=== PATIENT | female | born 1980 | race Caucasian/White ===

== ENCOUNTER 2017-09-12 13:14 | Emergency (ER) | payer OTHER, SELFPAY ==
[2017-09-12 13:40] VITALS: BMI 35.5
--- NOTE | 2017-09-12 15:17 | OBHP ---
Datetime: 09/12/2017 13:43 IP Adm Impression: Term, intrauterine ; No Active Labor; Intact Membranes IP Admit Plan: Observation/Evaluation Admit Comment, IP Provider: Came to L_D with a note from [facility] to do songram for NIC. Pt is without complaints. +FM; no SROM; No VB; +FM She had NST at [facility] and sent to [facility] Sono dept called. She was not scheduled for appt. 36yo IUP at 40w PMH: denies PSH denies POBGYNH: G1; no STD NKA PSoH: denies smoking ETOH drugs A; IUP at 40+w post date preg PLAN sono/presentation and NIC Extremities - PN: Normal Back - PN: Normal Lungs - PN: Normal Heart - PN: Normal Neurologic - PN: Normal HEENT - PN: Normal General - PN: Normal Presentation-Admit: Vertex Membranes, Provider: Intact Contraction Comments Provider: occ Pool Provider: Negative IP Hx Assessment: The History has been Reviewed and is Current IP Chief Complaint: Other FHR Category Provider Fetus A: Category I NICHD Decel Fetus A IP Provider: None Dilatation, Provider: 0 Genitourinary Exam: Normal
--- NOTE | 2017-09-12 16:04 | US ---
Date of service: 09/12/2017 PROCEDURE: Limited Ob ultrasound HISTORY: Evaluate NIC - presentation COMPARISON: None TECHNIQUE: Transvaginal pelvic ultrasound was performed. FINDINGS: There is a single live intrauterine fetus in cephalic presentation. The heart rate is 138 beats per minute. Amniotic fluid is adequate with amniotic fluid index of 16.5. The cervix is elongated and closed and measures 5.8 cm. IMPRESSION: Single live intrauterine fetus in cephalic presentation. Amniotic fluid index is normal and measures 16.5.
--- NOTE | 2017-09-12 17:39 | OBDCSUM ---
Datetime: 09/12/2017 15:59 Discharged to, Provider: Home Follow up at, Provider: [facility] Disch Instr Activity: Normal activity Disch Instr Diet: Regular Discharge Time: 09/12/2017 16:00 Follow up in weeks, Provider: call for appointment Disch Referrals: None Discharge Comment, Provider: NIC Mason cephaldelia ...she is scheduled with Dr Matt machado and will be sc heduled for induction Discharge Diagnosis Prov Other: Postdate preg
[2017-09-12 20:31] VITALS: BP 119/65; PULSE 80; RESP 18; TEMP 98.3; O2SAT 100
== END 2017-09-12 16:00 | disposition home or self-care (01) ==
LOC: H.EROB2 13:14
DX: O48.0 Post-term pregnancy (principal)

== ENCOUNTER 2017-09-17 00:39 | Inpatient (IN) | payer MEDICAID, OTHER, SELFPAY ==
[2017-09-17 01:53] VITALS: BMI 36.6
[2017-09-17] MEDS ORDERED: Lactated Ringer's 500 ML IV ONE (02:13)
[2017-09-17 03:16] LABS: BASO % 0.3 % (0.0-2.0); EOS # 0.1 K/uL (0.0-0.7); HEMOGLOBIN 11.8 g/dL (12.0-16.0); LYMPH # 1.9 K/uL (1.0-4.3); LYMPH % 26.1 % (20.0-40.0); MEAN CELL VOLUME 89.3 fl (81.0-99.0); MEAN CORPUSCULAR HEMOGLOBIN 31.2 pg (27.0-31.0); MEAN CORPUSCULAR HGB CONC 34.9 g/dL (33.0-37.0); MEAN PLATELET VOLUME 11.1 fl (7.2-11.7); MONO # 0.5 K/uL (0.0-0.8); MONO % 6.9 % (0.0-10.0); NEUT # 4.8 K/uL (1.8-7.0); NEUT % 65.7 % (50.0-75.0); NRBC % 0.3 % (0.0-0.0); RBC 3.79 Mil/uL (3.80-5.20); RED CELL DISTRIBUTION WIDTH 14.1 % (11.5-14.5); WHITE BLOOD COUNT 7.4 K/uL (4.8-10.8)
--- NOTE | 2017-09-17 08:19 | OBADHP ---
Datetime: 09/17/2017 02:22 Admit Comment, IP Provider: Pt is a 37 yo JORGE 09/06/17 41.4wk based on LMP 11/30/17 and 14 wk U/S done 03/04/17 here due to feeling SROM at 11pm and contractions starting at 12am. Denies vaginal bleed ing, states the baby has good movements. Patient goes to [facility] in [place]. Denies headaches, blurry vision, CP, SOB, NVDC, or burning with urination. Fetus at last U/S(09/11/17) was 6lbs 11oz. Ob Hx: Denies complications with current Nutrition Teacher Hx: Denies STI's, denies abnormal pap smears, last sexually active months ago PNL: unremarkable except Quantiferon + (CXR post ), Patient did not receive TDAP vaccine PMHx: None Meds: Prenatals Allergies:NKDA Fam Hx: None Social Hx: Denies smoking, drug use or alcohol use Surg Hx: None A/P 41.4 wk IUP here with SROM and contractions - Monitor heart tracings - Admit to L _ D start labor protocol - Start IVF, CBC, type and screen, RPR, HIV (3rd tm labs) - Cervical exam performed by Dr. Calderon showed pt is 1cm dilated - Patient would like to see if she progresses naturally in 2 hours, then start Cytotec 50 mg Q4h Natalie Silva M.D. PGY-1 Patient seen and case discussed with Dr. Calderon OB Hospitalist on-call. With PGY, i saw and examined this patient. Agree wth note MAHNDO -Disucssion with pt about condition, cervical ripening, labor, delivery, medications, pain managem ent, Extremities - PN: Normal Abdomen - PN: Normal Lungs - PN: Normal Heart - PN: Normal HEENT - PN: Normal General - PN: Normal Presentation-Admit: Vertex FHR - Baseline A Provider: 120's Amniotic Fluid Color, Provider: Clear Membranes, Provider: Ruptured Contraction Comments Provider: Yes Pool Provider: Positive Nitrazine Provider: Positive IP Hx Assessment: The History has been Reviewed and is Current Vital Signs Provider: Reviewed; Within Normal Limits IP Chief Complaint: Uterine contractions; Suspected ruptured membranes NICHD Variability Prov Fetus A: Moderate 6-25bpm NICHD Accel Fetus A IP Provider: 15X15 FHR Category Provider Fetus A: Category I NICHD Decel Fetus A IP Provider: None Dilatation, Provider: 1 Effacement, Provider: long Station, Provider: EGKiran AdmitDate IP: 41.4 IP Adm Impression: Term, intrauterine ; No Active Labor; Ruptured Membranes IP Admit Plan: Admit to unit; Initiate labor induction protocol Datetime: 09/12/2017 13:43 Back - PN: Normal Neurologic - PN: Normal Genitourinary Exam: Normal
[2017-09-17] MEDS: Lactated Ringer's 500 ML IV SCH ×2 (17:19→22:25)
[2017-09-17] MEDS ORDERED: Nalbuphine HCL 10 mg/ml Ampule IVP PRN (20:24)
[2017-09-17] MEDS ORDERED: Nalbuphine 20 mg/ml Inj (1 ml) ONE (20:37)
[2017-09-18] MEDS: Lactated Ringer's 500 ML IV SCH (00:30)
[2017-09-18] MEDS ORDERED: Fentanyl/Bupivacaine HCl 250 ML EPI ONE (01:27)
[2017-09-18] MEDS ORDERED: Oxytocin 30 units/LR 500ML 30 U/500 ML BAG IV ONE (07:42)
--- NOTE | 2017-09-18 07:42 | OBPN ---
Datetime: 09/17/2017 12:38 IP Progress Impression: Reassuring heart rate; Reactive non-stress test; Rupture of membranes IP Informed Consent Obtain: Vaginal Delivery IP Progress Plan: Continue present management FHR - Baseline A Provider: 145 IP Progress Note Comment: Patient presented secondary to premature rupture of membranes patient rece ived Cytotec overnight patient reports contractions denies any vaginal bleeding good movement Sterile vaginal exam 1 cm 80% effaced -2 Continue Cytotec Vertex presentation Adequate pelvis Estimated weight 8-1/2-9 pounds anticipte normal vaginal delivery NICHD Accel Fetus A IP Provider: [id number] NICHD Variability Prov Fetus A: Moderate 6-25bpm Dilatation, Provider: 1 Effacement, Provider: 80 Station, Provider: -2 NICHD Decel Fetus A IP Provider: None Datetime: 09/17/2017 02:22 Pool Provider: Positive Nitrazine Provider: Positive Membranes, Provider: Ruptured Amniotic Fluid Color, Provider: Clear Contraction Comments Provider: Yes Presentation-Admit: Vertex Vital Signs Provider: Reviewed; Within Normal Limits FHR Category Provider Fetus A: Category I
--- NOTE | 2017-09-18 07:44 | OBPN ---
Datetime: 09/17/2017 22:42 IP Progress Impression: Reassuring heart rate; Rupture of membranes IP Progress Plan: Continue present management FHR - Baseline A Provider: 145 IP Progress Note Comment: Patient reported having increased pain and pressure requesting epidural an esthesia Sterile vaginal exam 180-2 Patient counseled regarding pain management we discussed sedation, nitrous, epidural After thorough discussion patient opted for epidural NICHD Accel Fetus A IP Provider: 15X15 NICHD Variability Prov Fetus A: Moderate 6-25bpm Dilatation, Provider: 1 Effacement, Provider: 80 Station, Provider: -2
--- NOTE | 2017-09-18 07:49 | OBPN ---
Datetime: 09/18/2017 07:44 IP Progress Impression: Normal progression of labor; Reassuring heart rate; Rupture of membran es IP Procedures: Sterile Vag Exam IP Progress Plan: Continue present management FHR - Baseline A Provider: 145 Gestation - Est Wks by US: 41.0 Weight - Estimated: 81/2-9 Presentation-Admit: Vertex IP Progress Note Comment: She doing well comfortable with epidural reports some pelvic pressure Sterile vaginal exam fully dilated +2 station Anticipate vaginal delivery NICHD Accel Fetus A IP Provider: 15X15 NICHD Variability Prov Fetus A: Moderate 6-25bpm Dilatation, Provider: 10 Effacement, Provider: 100 Station, Provider: 0
[2017-09-18] MEDS ORDERED: Lidocaine 1% 20 MG/2 ML PF AMP ONE (08:43)
[2017-09-18] MEDS ORDERED: Benzocaine/Menthol SPRAY TOP PRN (10:13)
[2017-09-18] MEDS ORDERED: Oxycodone/Acetaminophen 5/325 mg Tab PO PRN ×4 (10:13→11:59)
[2017-09-19 06:07] LABS: BASO % 0.3 % (0.0-2.0); EOS % 0.3 % (0.0-4.0); HEMOGLOBIN 10.7 g/dL (12.0-16.0); LYMPH # 2.4 K/uL (1.0-4.3); LYMPH % 15.9 % (20.0-40.0); MEAN CELL VOLUME 91.1 fl (81.0-99.0); MEAN CORPUSCULAR HEMOGLOBIN 30.2 pg (27.0-31.0); MEAN CORPUSCULAR HGB CONC 33.1 g/dL (33.0-37.0); MEAN PLATELET VOLUME 10.3 fl (7.2-11.7); MONO % 6.7 % (0.0-10.0); NEUT # 11.5 K/uL (1.8-7.0); NEUT % 76.8 % (50.0-75.0); RBC 3.54 Mil/uL (3.80-5.20); RED CELL DISTRIBUTION WIDTH 14.5 % (11.5-14.5)
[2017-09-19] MEDS ORDERED: Multivitamin With Minerals Tab PO SCH ×2 (09:00)
--- NOTE | 2017-09-19 10:05 | OBPPN ---
Datetime: 09/19/2017 07:47 PP Pain Prov: Within normal limits PP Nausea Prov: Denies PP Flatus Prov: Yes PP BM Prov: No PP Heart Prov: Normal PP Lungs Prov: Normal PP Abdomen/Uterus Prov: Normal PP Lochia Prov: Normal PP Extremities Prov: Normal PP C/S Incision Prov: Not Applicable PP Progress Prov: Normal PP Impression Prov: Normal progression PP Plan Prov: Continue present management PP Progress Note Prov: S: Pt is a 37 yo 41.4wk s/p on 09/18/17 PPD 1. Seen and examined at bedside this am. Patient denies any significant overnight events. Reports pain is controlled with pa in medicine, especially leg, back and vaginal pain. OOB/Ambulation well without dizziness. Breast/ mellissa ttle feeding well. Tolerating regular diet. Lochia is similar to menses. Voiding freely states breezy bl ood was noted. Patient has not had a bowel movement, but not is passing gas per rectum. Denies fever /chills, diarrhea, nausea/vomiting, CP/SOB , lightheadedness. O: BP:134/78, HR:117, T:99.7F CBC-10.7/32.3, blood type: O+, rubella: Immune PHYSICAL EXAM: GEN: AAOx3, Resting comfortably in bed, NAD HEENT: NCAT, White sclera, pink conjunctiva, oral mucosa moist. LUNGS: CTA B/L, no wheezing, rhonchi, or rales, B/L chest rise CVS: RRR, S1, S2, No murmurs, rubs, gallops ABD: ND, +BS, firm fundus @ umbilical level. Soft, appropriate TTP EXT: no edema, negative Chris's sign, calves non tender NEURO/Psych: no gross focal deficit, preserved affect and mood. A/P 37 y/o 41.4 wks post , had a on 09/18/17 @ 8:41. Pt afebrile, tolerating pain with medication, tolerating regular diet, adequate urine output. Encouraged breast feeding and ambulation Ibuprofen 600mg 1 tab po Q 6h prn mild pain PNV 1 tab po daily Post discharge contraception- unsure F/U 4-6 weeks for post- visit with [facility] Natalie Silva M.D. PGY-1 Patient was seen and case discussed with Dr. Rojas The patient was seen with the resident I agree with the note IP PP Procedures: None Vital Signs Provider PP: Reviewed Vital Signs Provider Details PP: HR 117
[2017-09-19] MEDS: Benzocaine/Menthol SPRAY TOP PRN (12:55)
[2017-09-20] MEDS: Benzocaine/Menthol SPRAY TOP PRN (02:07)
[2017-09-20] MEDS ORDERED: Prenatal Multivit/Folic Acid/Iron Tab PO SCH (09:00)
[2017-09-20] MEDS ORDERED: Patient's Own Med (Pnv With Ca,No.72/Iron/Fa [Pnv Prenatal Plus Multivit Tab] 1 TAB) PO SCH (09:00)
[2017-09-20 19:55] VITALS: BP 128/81; PULSE 82; RESP 20; TEMP 98.5; O2SAT 100
--- NOTE | 2017-09-20 22:55 | OBDS ---
DELIVERY PERSONNEL Delivery Doctor: Anibal Akhtar MD Vinyl Cutter: Nancie Harris RN MATERNAL INFORMATION Delivery Anesthesia: None Medications in Delivery: pitocin Estimated Blood Loss (ml): 300 Placenta Cultured: No Maternal Complications: None RN Comments: Live girl @ 0841 . Ifant care given. 9:9 Placenta delivered apparently intact. Pi tocin infusing well. Laceration repaired. Pt tolerated well. Provider Comments: Normal spontaneous vaginal delivery. Patient viable infant female with Apgars of 9 and 9 at one and 5 minutes respectively. Placenta de livered spontaneously. Laceration repaired, as above. Uterus firm and appropriately hemostatic follow ing delivery. Patient tolerated delivery and repair well. No complications. Estimated blood loss 300 mL. LABOR SUMMARY EDC: 09/06/2017 00:00 No. Babies in Womb: 1 Attempted: No Labor Anesthesia: Epidural LABOR INFORMATION Reason for Induction: Postterm; Premature Rupture of Membranes Onset of Labor: 09/16/2017 23:00 Complete Dilatation: 09/18/2017 07:00 Cervical Ripening Agents: Cytotec @ Oxytocin: N/A Group B Beta Strep: Negative Antibiotics # of Doses: 6 Steroids Given: None Reason Steroids Not Administered: Not Applicable MEMBRANES Membranes Rupture Method: Spontaneous Rupture of Membranes: 09/16/2017 23:00 Length of Rupture (hrs): 33.68 Amniotic Fluid Color: Clear Amniotic Fluid Amount: Scant Amniotic Fluid Odor: None STAGES OF LABOR Stage 1 hrs: 32 Stage 1 min: 0 Stage 2 hrs: 1 Stage 2 min: 41 Stage 3 hrs: 0 Stage 3 min: 26 Total Time in Labor hrs: 34 Total Time in Labor min: 7 VAGINAL DELIVERY Laceration Extension: Second Degree Laceration Type: Perineal; Periurethral Laceration Repair: Yes Laceration Repair Note: Second-degree midline peroneal laceration. 1% lidocaine. With 2. 0 repeat wi thout complication. Patient tolerated repair well. Initial Vag Sponge Count: 20 Final Vag Sponge Count: 20 Initial Vag Sharps Count: 3 Final Vag Sharps Count: 3 Sponge Count Correct: Yes Sharps Count Correct: Yes CSECTION DELIVERY Primary Indication: N/A Secondary Indication: N/A CSection Urgency: N/A CSection Incidence: N/A Labor: N/A Elective: N/A CSection Incision: N/A BABY A INFORMATION Delivery Date/Time: 09/18/2017 08:41 Method of Delivery: Vaginal Born in Route : No : N/A Forceps: N/A Vacuum Extraction: N/A Shoulder Dystocia : No SHOULDER DYSTOCIA BABY A Infant Delivery Date/Time: 09/18/2017 08:41 PRESENTATION/POSITION BABY A Presentation: Cephalic Cephalic Presentation: Vertex Breech Presentation: N/A PLACENTA INFORMATION BABY A Placenta Delivery Time : 09/18/2017 09:07 Placenta Method of Delivery: Spontaneous Placenta Status: Delivered SCORES BABY A Heart Rate 1 min: >100 bpm Resp Effort 1 min: Good Cry Reflex Irritability 1 min: Cough or Sneeze or Pulls Away Muscle Tone 1 min: Active Motion Color 1 min: Body [place], Extremities Blue Resuscitation Effort 1 min: N/A SCORE 1 MIN: 9 Heart Rate 5 min: >100 bpm Resp Effort 5 min: Good Cry Reflex Irritability 5 min: Cough or Sneeze or Pulls Away Muscle Tone 5 min: Active Motion Color 5 min: Body [place], Extremities Blue Resuscitation Effort 5 min: N/A SCORE 5 MIN: 9 Resuscitation Effort 10 min: N/A INFANT INFORMATION BABY A Gestational Age at Delivery: 41+5 Gestational Status: Post-term Outcome : Liveborn Infant Condition : Stable Sex: Female IDENTIFICATION/MEDS BABY A ID Band Number: [id number] ID Band Location: Left Leg; Left Arm WEIGHT/LENGTH BABY A Birthweight (gms): 3910 Weight (lb): 8 Infant Weight (oz): 10 CORD INFORMATION BABY A No. Cord Vessels: 3 Nuchal Cord : N/A Cord Blood Taken: Yes Suction: Mouth ASSESSMENT BABY A Infant Complications: None Physical Findings at Delivery: Within Normal Limits Infant Respirations: Appears Normal Supervisor Decorating/ALS Called : No Care By: nancie harris rn Transferred To: Remains with Mother
--- NOTE | 2017-09-20 22:59 | OBDS ---
DELIVERY PERSONNEL Delivery Doctor: Anibal Akhtar MD Database Consultant: Nancie Harris RN MATERNAL INFORMATION Delivery Anesthesia: None Medications in Delivery: pitocin Estimated Blood Loss (ml): 300 Placenta Cultured: No Maternal Complications: None RN Comments: Live girl @ 0841 . Ifant care given. 9:9 Placenta delivered apparently intact. Pi tocin infusing well. Laceration repaired. Pt tolerated well. Provider Comments: Normal spontaneous vaginal delivery. Patient viable female with Apgars of 9 and 9 at one and 5 minutes respectively. Placenta de livered spontaneously. Laceration repaired, as above. Uterus firm and appropriately hemostatic follow ing delivery. Patient tolerated delivery and repair well. No complications. Estimated blood loss 300 mL. LABOR SUMMARY EDC: 09/06/2017 00:00 No. Babies in Womb: 1 Attempted: No Labor Anesthesia: Epidural LABOR INFORMATION Reason for Induction: Postterm; Premature Rupture of Membranes Onset of Labor: 09/16/2017 23:00 Complete Dilatation: 09/18/2017 07:00 Cervical Ripening Agents: Cytotec @ Cervical Ripening Agents: Cytotec @ 50 mcg Cervical Ripening Agents: Cytotec @ Cervical Ripening Agents: Cytotec @ 50 Oxytocin: N/A Group B Beta Strep: Negative Antibiotics # of Doses: 6 Steroids Given: None Reason Steroids Not Administered: Not Applicable MEMBRANES Membranes Rupture Method: Spontaneous Rupture of Membranes: 09/16/2017 23:00 Length of Rupture (hrs): 33.68 Amniotic Fluid Color: Clear Amniotic Fluid Amount: Scant Amniotic Fluid Amount: Small Amniotic Fluid Odor: None Amniotic Fluid Odor: Normal STAGES OF LABOR Stage 1 hrs: 32 Stage 1 min: 0 Stage 2 hrs: 1 Stage 2 min: 41 Stage 3 hrs: 0 Stage 3 min: 26 Total Time in Labor hrs: 34 Total Time in Labor min: 7 VAGINAL DELIVERY Laceration Extension: Second Degree Laceration Type: Perineal; Periurethral Laceration Repair: Yes Laceration Repair Note: Second-degree midline peroneal laceration. 1% lidocaine. With 2. 0 repeat wi thout complication. Patient tolerated repair well. Initial Vag Sponge Count: 20 Final Vag Sponge Count: 20 Initial Vag Sharps Count: 3 Final Vag Sharps Count: 3 Sponge Count Correct: Yes Sharps Count Correct: Yes CSECTION DELIVERY Primary Indication: N/A Secondary Indication: N/A CSection Urgency: N/A CSection Incidence: N/A Labor: N/A Elective: N/A CSection Incision: N/A BABY A INFORMATION Infant Delivery Date/Time: 09/18/2017 08:41 Method of Delivery: Vaginal Born in Route : No : N/A Forceps: N/A Vacuum Extraction: N/A Shoulder Dystocia : No SHOULDER DYSTOCIA BABY A Delivery Date/Time: 09/18/2017 08:41 PRESENTATION/POSITION BABY A Presentation: Cephalic Presentation: Cephalic Presentation: Cephalic Presentation: Cephalic Cephalic Presentation: Vertex Breech Presentation: N/A PLACENTA INFORMATION BABY A Placenta Delivery Time : 09/18/2017 09:07 Placenta Method of Delivery: Spontaneous Placenta Status: Delivered SCORES BABY A Heart Rate 1 min: >100 bpm Resp Effort 1 min: Good Cry Reflex Irritability 1 min: Cough or Sneeze or Pulls Away Muscle Tone 1 min: Active Motion Color 1 min: Body [place], Extremities Blue Resuscitation Effort 1 min: N/A SCORE 1 MIN: 9 Heart Rate 5 min: >100 bpm Resp Effort 5 min: Good Cry Reflex Irritability 5 min: Cough or Sneeze or Pulls Away Muscle Tone 5 min: Active Motion Color 5 min: Body [place], Extremities Blue Resuscitation Effort 5 min: N/A SCORE 5 MIN: 9 Resuscitation Effort 10 min: N/A INFANT INFORMATION BABY A Gestational Age at Delivery: 41+5 Gestational Status: Post-term Outcome : Liveborn Infant Condition : Stable Sex: Female IDENTIFICATION/MEDS BABY A ID Band Number: [id number] ID Band Location: Left Leg; Left Arm WEIGHT/LENGTH BABY A Infant Birthweight (gms): 3910 Infant Weight (lb): 8 Weight (oz): 10 CORD INFORMATION BABY A No. Cord Vessels: 3 Nuchal Cord : N/A Cord Blood Taken: Yes Suction: Mouth ASSESSMENT BABY A Infant Complications: None Physical Findings at Delivery: Within Normal Limits Respirations: Appears Normal Institutional Aide/ALS Called : No Infant Care By: nancie harris rn Transferred To: Remains with Mother
== END 2017-09-20 12:35 | disposition home or self-care (01) | DRG 372 ==
LOC: H.EROB2 00:39 → H.L&D 02:13 → H.OB/GYN 09-18 12:00
PROVIDERS: ADMIT Obstetrics & Gynecology; ATTEND Obstetrics & Gynecology
PROC: 4A1HXCZ Monitoring of Products of Conception, Cardiac Rate, External Approach (ICD-10-PCS; 2017-09-17)
PROC: 10E0XZZ Delivery of Products of Conception, External Approach (ICD-10-PCS; principal; 2017-09-18)
PROC: 0KQM0ZZ Repair Perineum Muscle, Open Approach (ICD-10-PCS; 2017-09-18)
DX: O48.0 Post-term pregnancy (principal); O42.90 Premature rupture of membranes, unspecified as to length of time between rupture and onset of labor, unspecified weeks of gestation; O70.1 Second degree perineal laceration during delivery; Z3A.41 41 weeks gestation of pregnancy; Z37.0 Single live birth